=== PATIENT | female | born 1955 | race Caucasian/White ===

== ENCOUNTER → 2019-12-17 | Outpatient (CLI) | payer MEDICARE, OTHER ==
--- NOTE | 2019-12-17 12:28 | CT ---
EXAMINATION TYPE: CT abdomen pelvis wo con DATE OF EXAM: 12/17/2019 COMPARISON: None HISTORY: left flank pain CT DLP: 1000 mGycm Automated exposure control for dose reduction was used. TECHNIQUE: Helical acquisition of images was performed from the lung bases through the pelvis. FINDINGS: LUNG BASES: Subsegmental consolidation is seen involving both lung bases. There is a small hiatal her raz. LIVER/GB: Postcholecystectomy changes noted. Liver homogeneous. PANCREAS: No significant abnormality is seen. SPLEEN: No significant abnormality is seen. ADRENALS: No significant abnormality is seen. KIDNEYS: No significant abnormality is seen. ADENOPATHY: None visualized. OSSEOUS STRUCTURES: Hypertrophic and degenerative changes spine. Arthropathy of the hips. BOWEL: Diverticulosis of the colon with no CT evidence of diverticulitis. OTHER: Aorta of normal caliber. Atherosclerotic change of the vasculature. Tiny fat-containing perium bilical hernia. IMPRESSION: 1. No evidence of renal calculus or obstruction. 2. Diverticulosis with no CT evidence of diverticulitis
== END | disposition home or self-care (01) ==
LOC: RADCTMAIN 10:46 → MERGE 11:20
PROVIDERS: ATTEND Urology
DX: K57.90 Diverticulosis of intestine, part unspecified, without perforation or abscess without bleeding (principal); Z88.5 Allergy status to narcotic agent
CPT/HCPCS: 74176

== ENCOUNTER → 2020-08-07 | Outpatient (CLI) | payer MEDICARE, OTHER ==
[2020-08-07 09:29] LABS: African American GFR (CKD) >90 (>60 ml/min/1.73 sqM); Blood Urea Nitrogen 18 mg/dL (7-17); Non-African American GFR(CKD) >90 (>60 ml/min/1.73 sqM)
--- NOTE | 2020-08-07 10:15 | CT ---
EXAMINATION TYPE: CT chest w con DATE OF EXAM: 08/07/2020 COMPARISON: None HISTORY: Cough CT DLP: 625 mGycm Automated exposure control for dose reduction was used. CONTRAST: CT scan of the chest is performed with IV Contrast, patient injected with 100 mL of Isovue 300. FINDINGS: LUNGS: There is an enhancing density right upper lobe anteriorly and medially measuring 1.8 x 1.9 x 0 .9 cm which could reflect an area of atelectasis however underlying mass is not excluded. Similar matt earing density is noted along the right cardiac border measuring 2 cm and in the region of the lingul a measuring approximately 1.8 cm. Right middle lobe groundglass nodule measuring 8 mm. No evidence fo r pleural effusion. MEDIASTINUM: There are no greater than 1 cm hilar or mediastinal lymph nodes. No pericardial effusi on is seen. Thoracic aorta is of normal caliber. The heart is not enlarged. UPPER ABDOMEN: No significant abnormality appreciated. OTHER: No additional significant abnormality is seen. IMPRESSION: 1. Multifocal areas of nodular enhancing density within the lungs as discussed above may reflect area s of infiltrate and/or atelectasis. Underlying neoplasm is not excluded. 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
== END | disposition home or self-care (01) ==
LOC: RADCTMAIN 08:40
PROVIDERS: ATTEND Internal Medicine Hematology & Oncology
DX: J98.4 Other disorders of lung (principal)
CPT/HCPCS: 82565; 84520; 71260; 36415; Q9967

== ENCOUNTER → 2020-08-12 | Outpatient (CLI) | payer MEDICARE, OTHER ==
[2020-08-13 00:07] LABS: Protein, Total 5.9 g/dL (6.2-8.2)
[2020-08-13 14:49] LABS: Albumin 3.38 g/dL (3.80-4.90); Gamma Globulin 0.74 g/dL (0.70-1.50)
== END | disposition home or self-care (01) ==
LOC: LABWHC1 10:51
PROVIDERS: ATTEND Psychiatry & Neurology Neurology
DX: G57.93 Unspecified mononeuropathy of bilateral lower limbs (principal)
CPT/HCPCS: 36415; 84165

== ENCOUNTER → 2020-08-23 | Outpatient (CLI) | payer MEDICARE, OTHER ==
--- NOTE | 2020-08-23 12:12 | PE ---
EXAMINATION TYPE: PET CT fusion skull to thigh DATE OF EXAM: 08/23/2020 COMPARISON: Chest CT August 07, 2020. CT abdomen and pelvis December 17, 2019 HISTORY: Abnormal CT, solitary pulmonary nodule. TECHNIQUE: Following the intravenous administration of 11.35 mCi of F-18 FDG, whole body images are performed from the skull base to the midthigh. Images are reviewed on the computer in the coronal, a xial, and sagittal planes. Reconstructed rotating images are created on independent workstation and reviewed on the computer. A localization and attenuation correction CT is performed in conjunction with the PET scan. Blood glucose level equals 93. SCAN: Initial Scan FINDINGS: SKULL BASE AND NECK: No areas of suspicious for metabolic uptake. CHEST, MEDIASTINUM, AND HILAR REGION: Stable area of irregular consolidation with linear extension to the pleural surface having slightly more nodular component axial image 93 measuring 3.6 x 1.2 cm at this level. Superior extension is identified. No abnormal hypermetabolic uptake. Findings almost cert ainly reflect postinflammatory scarring. Mild to moderate linear scarring in both bases left greater than right also present. Nodular 1.9 x 1.0 cm low dense opacity in the lingula axial image 113 is tatianna tabolic. No areas of abnormal hypermetabolic uptake. ABDOMEN AND PELVIS: No areas of abnormal hypermetabolic uptake. Normal excretion. No adrenal masses. OSSEOUS STRUCTURES: No areas of abnormal hypermetabolic uptake. OTHER CT: Mild calcified plaque bilateral carotid bulb level. Coronary artery calcification is presen t which is noted marked underlying coronary artery disease. Small sized hiatal hernia. Cholecystectomy clips. Sigmoid colonic diverticulosis. Mild calcified plaque distal abdominal aorta. IMPRESSION: No suspicious hypermetabolic uptake to suggest neoplasm. Findings favor postinflammatory scarring. Consider follow-up CT in 6-12 months time to confirm stability.
== END | disposition home or self-care (01) ==
LOC: RADPETMAIN 07:56
PROVIDERS: ATTEND Internal Medicine Critical Care Medicine
DX: R91.1 Solitary pulmonary nodule (principal)
CPT/HCPCS: 78815; A9552

== ENCOUNTER → 2023-12-12 | Outpatient (CLI) | payer MEDICARE, OTHER ==
[2023-12-12 21:37] LABS: Protein, Total 6.2 g/dL (6.2-8.2)
[2023-12-12 22:15] LABS: Homocysteine 10.3 UMOL/L (4.00-14.00)
[2023-12-13 17:27] LABS: Albumin 3.76 g/dL (3.80-4.90); Gamma Globulin 0.68 g/dL (0.70-1.50)
== END | disposition home or self-care (01) ==
LOC: LABWHC1 12:13
PROVIDERS: ATTEND Psychiatry & Neurology Neurology
DX: G62.9 Polyneuropathy, unspecified (principal); R20.2 Paresthesia of skin; Z79.899 Other long term (current) drug therapy
CPT/HCPCS: 36415; 82607; 83036; 83090; 84165

== ENCOUNTER → 2024-03-07 | Outpatient (CLI) | payer MEDICARE, OTHER ==
--- NOTE | 2024-03-07 14:52 | CT ---
EXAMINATION TYPE: CT chest wo con CT DLP: 636 mGycm, Automated exposure control for dose reduction was used. DATE OF EXAM: 03/07/2024 2:26 PM COMPARISON: PET CT 09/08, CT chest 08/07/2020 CLINICAL INDICATION:Female, 68 years old with history of R91.8 OTHER NONSPECIFIC ABNORMAL FINDING OF LUNG F; PHH, Nonspecific abnormal finding of lung field. Recent pneumonia. TECHNIQUE: Multiple axial images were obtained through the chest without IV contrast. Lack of IV or o ral contrast limits evaluation of solid and hollow organ viscera. . Coronal and sagittal reformats re viewed. FINDINGS: LUNGS/ PLEURA: No pleural effusion, pneumothorax, or focal consolidation. Mild centrilobular emphysem atous changes. Right upper lobe punctate calcified granuloma. Linear atelectasis within the medial a spect of the right middle lobe. Left apical 4.7 mm nodular opacity (series 4, image 13). Stable subpl eural left lower lobe 3 mm groundglass nodular opacity dating back to 2020 and considered benign. Sta ble right middle lobe 7.8 mm nodular opacity dating back to 2020 and considered benign (series 4, argelia ge 22). AIRWAY: Patent and unremarkable.. HEART: Size within normal limits.No pericardial effusion.. Coronary artery calcifications. MEDIASTINUM: No gross evidence of adenopathy. Mild atherosclerotic calcification of the aorta and its branches. VASCULATURE: No aortic aneurysm. MUSCULOSKELETAL: Mild disc degeneration changes are present throughout the thoracolumbar spine. No ac kashif osseous abnormality. SOFT TISSUES/LYMPH NODES: Unremarkable. LOWER NECK: No significant findings. UPPER ABDOMEN: Gallbladder is surgical absent. IMPRESSION: 1. Previously seen pulmonary nodules are stable dating back to 2020 and considered benign. New left u pper lobe 4.7 mm nodular density. In a low-risk patient, no follow up is recommended. In a high-risk patient consider optional CT chest in 12 months. 2. Mild COPD changes. [facility], , 03/07/2024 2:50 PM
== END | disposition home or self-care (01) ==
LOC: RADCTMAIN 14:03
PROVIDERS: ATTEND Family Medicine
DX: J44.9 Chronic obstructive pulmonary disease, unspecified (principal); R91.8 Other nonspecific abnormal finding of lung field; I70.0 Atherosclerosis of aorta
CPT/HCPCS: 71250

== ENCOUNTER → 2024-04-16 | Outpatient (CLI) | payer MEDICARE, OTHER | END | disposition home or self-care (01) | LOC: LABWHC1 14:08 | PROVIDERS: ATTEND Psychiatry & Neurology Neurology | DX: G62.9 Polyneuropathy, unspecified (principal); R20.2 Paresthesia of skin; Z79.899 Other long term (current) drug therapy | CPT/HCPCS: 36415; 82306; 82607; 83036 ==